=== PATIENT | female | born 1980 | race Two or more races ===

== ENCOUNTER 2016-04-08 16:25 | Emergency (ER) | payer OTHER ==
[~2016-04-08] VITALS: Ht 160 cm; Wt 93.1 kg
[~2016-04-08 16:25] MED LIST: ACET-704 PO; CITA20TA9 PO; IBUP-1060 PO; LABE100T28 PO; LABE100T3 PO; LABE200T2 PO; PREN-2 PO
[2016-04-08 18:15] VITALS: BP 121/67
--- NOTE | 2016-04-08 18:35 | PHYS DOC ---
Past Medical History Past Medical History: Depression, Hypertension (During ) Past Surgical History: No Surgical History Alcohol Use: None Drug Use: None Adult General Chief Complaint Chief Complaint: COUGH HPI HPI Patient is a 35 year old female approximately 37 weeks who presents with 5 days of dry cough, rhinorrhea, and now developing bilateral lower anterior chest wall and upper abdominal pain when she coughs. Pain is achy, intermittent. She is taking Tylenol Cold and Flu for her symptoms as directed by her doctor, but this is not controlling her cough. She took this approx 2 hours ago. She denies fever or chills, myalgia, sore throat, nausea or vomiting , diarrhea, dysuria. States she feels normal movement. Denies vaginal bleeding, loss of fluids, or abdominal cramping. Review of Systems Review of Systems Constitutional: Denies fever or chills [] Eyes: Denies change in visual acuity, redness, or eye pain [] HENT: Denies nasal congestion or sore throat [] Respiratory: Denies shortness of breath [] Cardiovascular: No additional information not addressed in HPI [] GI: Denies abdominal pain, nausea, vomiting, bloody stools or diarrhea [] : Denies dysuria or hematuria [] Musculoskeletal: Denies back pain or joint pain [] Integument: Denies rash or skin lesions [] Neurologic: Denies headache, focal weakness or sensory changes [] Endocrine: Denies polyuria or polydipsia [] Allergies Allergies Allergies Coded Allergies Type Severity Reaction Last Updated Verified No Known Drug Allergies 10/05/15 No Physical Exam Physical Exam Constitutional: Well developed, well nourished, no acute distress, non-toxic appearance. [] HENT: Normocephalic, atraumatic, bilateral external ears normal, oropharynx moist, no oral exudates, nose normal. [] Eyes: PERRLA, EOMI. [] Neck: Normal range of motion, supple. [] Cardiovascular:Heart rate regular rhythm [] Lungs & Thorax: Bilateral breath sounds clear to auscultation. No chest wall tenderness [] Abdomen: Bowel sounds normal, soft, no tenderness. Gravid. [] Skin: Warm, dry, no erythema, no rash. [] Back: No tenderness, no CVA tenderness. [] Extremities: No tenderness, ROM intact, no edema. [] Neurologic: Alert and oriented X 3, normal motor function, normal sensory function, no focal deficits noted. [] Psychologic: Affect normal, judgement normal, mood normal. [] Current Patient Data Vital Signs Vital Signs Date Time Temp Pulse Resp B/P Pulse Ox O2 Delivery O2 Flow Rate FiO2 04/08/16 18:15 97.7 71 18 121/67 97 Room Air 97.7 Course & Med Decision Making Course & Med Decision Making Pertinent Labs and Imaging studies reviewed. (See chart for details) She appears well on exam. Discussed avenues of symptomatic care for likely viral URI. Return precautions given. She understands and agrees with plan. Dragon Disclaimer Dragon Disclaimer This electronic medical record was generated, in whole or in part, using a voice recognition dictation system. Departure Departure Impression: Primary Impression: Upper respiratory infection Disposition: HOME, SELF-CARE Condition: STABLE Referrals: RENATO HANDY MD (PCP) Patient Instructions: Upper Respiratory Infection, Adult, [id number] Additional Instructions: Take Tylenol (acetaminophen) as needed for pain. Use honey as needed for cough. Follow-up with your primary care doctor within one week. Return for any concerns. Problem Qualifiers Primary Impression: Upper respiratory infection URI type: unspecified viral URI Qualified Code: J06.9 - Acute upper respiratory infection, unspecified Deedee DAWN MD Apr 08, 2016 18:35
== END 2016-04-08 18:53 | disposition home or self-care (01) ==
LOC: ER 16:25
DX: J06.9 Acute upper respiratory infection, unspecified (principal); F32.9 Major depressive disorder, single episode, unspecified
CPT/HCPCS: 99282

== ENCOUNTER 2016-04-16 13:28 | Observation (INO) | payer OTHER ==
[2016-04-16 14:19] LABS: NEG OBC AMNIO NEG; POS OBC AMNIO POS
[2016-04-16] MEDS ORDERED: HYDROXYZINE PAMOATE 25 MG CAPSULE PO PRN (15:45)
[2016-04-16] MEDS ORDERED: ACETAMINOPHEN 325 MG TABLET. PO PRN (15:45)
== END 2016-04-16 20:43 | disposition home or self-care (01) ==
LOC: 3 SO LND 13:28
PROVIDERS: ADMIT Family Medicine; ATTEND Family Medicine
DX: O62.9 Abnormality of forces of labor, unspecified (principal); O42.92 Full-term premature rupture of membranes, unspecified as to length of time between rupture and onset of labor; Z3A.38 38 weeks gestation of pregnancy
CPT/HCPCS: 36415; 84112; G0378; G0379

== ENCOUNTER 2016-04-20 21:24 | Observation (INO) | payer OTHER ==
[2016-04-20] MEDS ORDERED: IV RINGERS,LACTATED 1000ML 1,000 ML IV SCH (21:45)
[2016-04-20 21:55] LABS: BILIRUBIN,URINE NEGATIVE (NEG); GLUCOSE,URINE NEGATIVE (NEG); NITRITE,URINE POSITIVE (NEG); PROTEIN,URINE NEGATIVE (NEG-TRACE); UROBILINOGEN,URINE 0.2 mg/dL (0.2 mg/dL)
[2016-04-20 22:01] LABS: BARBITURATES NEG (NEG); BENZODIAZEPINES NEG (NEG); CANNABINOIDS NEG (NEG); COCAINE NEG (NEG); ETHANOL, URINE NEG (NEG); METHADONE NEG (NEG); OPIATES NEG (NEG); PHENCYCLIDINE NEG (NEG)
[2016-04-20 22:06] LABS: BACTERIA,URINE MANY /HPF (0-FEW); RBC,URINE RARE /HPF (0-2); SQUAMOUS EPITHELIAL CELL,UR MANY /LPF
== END 2016-04-20 22:50 | disposition home or self-care (01) ==
LOC: 3 SO LND 21:24
PROVIDERS: ADMIT Family Medicine; ATTEND Family Medicine
DX: O21.2 Late vomiting of pregnancy (principal); O26.893 Other specified pregnancy related conditions, third trimester; R11.0 Nausea; R19.7 Diarrhea, unspecified; Z3A.39 39 weeks gestation of pregnancy
CPT/HCPCS: 81001; 87086; G0378; G0379; G0481

== ENCOUNTER 2016-04-23 04:44 | Inpatient (IN) | payer OTHER ==
[~2016-04-23] VITALS: Ht 160 cm; Wt 97.1 kg
[2016-04-23] MEDS ORDERED: BUTORPHANOL 2 MG VIAL. IV PRN (05:00)
[2016-04-23] MEDS ORDERED: IBUPROFEN 600 MG TABLET. PO PRN (05:00)
[2016-04-23] MEDS ORDERED: ONDANSETRON PF 4 MG/2 ML VIAL. IV PRN (05:00)
[2016-04-23] MEDS ORDERED: LIDOCAINE 1% PF 30 ML VIAL. INJ PRN (05:00)
[2016-04-23] MEDS ORDERED: FENTANYL PF 100 MCG/2 ML VIAL. IV PRN (05:00)
[2016-04-23] MEDS ORDERED: OXYTOCIN 30 UNIT/500 ML PREMIX 500 ML IV PRN ×3 (05:00→12:30)
[2016-04-23] MEDS ORDERED: 0.9 % SODIUM CHLORIDE 10 ML DISP.SYRIN. IV PRN ×2 (05:00→12:30)
[2016-04-23] MEDS ORDERED: TERBUTALINE 1 MG/ML VIAL. SQ PRN (05:00)
[2016-04-23] MEDS ORDERED: ACETAMINOPHEN 325 MG TABLET. PO PRN ×2 (05:00→12:30)
[2016-04-23] MEDS: IV RINGERS,LACTATED 1000ML 1,000 ML IV SCH ×2 (05:25→09:16)
[2016-04-23 05:38] LABS: HEMATOCRIT 33.4 % (36.0-47.0); RED BLOOD COUNT 3.99 x10^6/uL (3.50-5.40); RED CELL DISTRIBUTION WIDTH 16.3 % (11.5-14.5)
[2016-04-23 05:53] LABS: CALCIUM 8.8 mg/dL (8.5-10.1); CREATININE 0.6 mg/dL (0.6-1.0); GFR 115.1; POTASSIUM 4.2 mmol/L (3.5-5.1)
[2016-04-23 05:59] LABS: ALBUMIN 2.5 g/dL (3.4-5.0); ALBUMIN/GLOBULIN RATIO 0.7 (1.0-1.7); TOTAL BILIRUBIN 0.3 mg/dL (0.2-1.0); TOTAL PROTEIN 6.2 g/dL (6.4-8.2)
[2016-04-23] MEDS ORDERED: AMPICILLIN 2 GM in IV NORMAL SALINE 100ML 100 ML IV ONE (06:00)
[2016-04-23] MEDS ORDERED: ROPIVacaine 0.2% IN 0.9%NACL PF 40 MG/20 ML DISP.SYRIN. EPI PRN (09:45)
[2016-04-23] MEDS ORDERED: NALOXONE 0.4 MG/ML VIAL. IV PRN (09:45)
[2016-04-23] MEDS ORDERED: FENTANYL PF 100 MCG/2 ML VIAL. EPI PRN (09:45)
[2016-04-23] MEDS ORDERED: BUPIVACAINE MPF 0.25% 10 ML VIAL. EPI PRN (09:45)
[2016-04-23] MEDS ORDERED: L&D EPIDURAL CASSETTE 100 ML EP PRN (09:45)
[2016-04-23] MEDS ORDERED: L&D EPIDURAL CASSETTE 100 ML PUMP.RESVR. EP ONE (10:00)
[2016-04-23] MEDS ORDERED: ROPIVacaine 0.2% IN 0.9%NACL PF 40 MG/20 ML DISP.SYRIN. ONE (10:00)
[2016-04-23] MEDS ORDERED: IV RINGERS,LACTATED 1000ML 1,000 ML IV SCH (10:00)
[2016-04-23] MEDS ORDERED: AMPICILLIN 1 GM in IV NORMAL SALINE 50ML 50 ML IV SCH (10:00)
[2016-04-23] MEDS ORDERED: INFLUENZA VAX SCREEN BY RX. MC PRN (12:00)
[2016-04-23] MEDS ORDERED: MAGNESIUM HYDROXIDE 2,400 MG/30 ML ORAL.SUSP. PO PRN (12:30)
[2016-04-23] MEDS ORDERED: MMR per PROTOCOL. MC PRN (12:30)
[2016-04-23] MEDS ORDERED: PHENYLEPH/MINERAL OIL/PETROLAT RECTAL OINTMENT 28GM TUBE. RC PRN (12:30)
[2016-04-23] MEDS ORDERED: HYDROCODONE/APAP 5/325MG TABLET. PO PRN (12:30)
[2016-04-23] MEDS ORDERED: ZOLPIDEM 5 MG TABLET. PO PRN (12:30)
[2016-04-23] MEDS ORDERED: DIPHENHYDRAMINE HCL 25 MG CAPSULE PO PRN (12:30)
[2016-04-23] MEDS ORDERED: BENZOCAINE 20% TOPICAL AEROSOL SPRAY 57GM CAN. TP PRN (12:30)
[2016-04-23] MEDS ORDERED: HYDROCORTISONE 1% TOPICAL OINTMENT 30GM TUBE. TP PRN (12:30)
[2016-04-23] MEDS ORDERED: MAG HYDROX/ALUMINUM HYD/SIMETH 30 ML ORAL.SUSP PO PRN (12:30)
[2016-04-23] MEDS ORDERED: SIMETHICONE 80 MG TAB.CHEW PO PRN (12:30)
--- NOTE | 2016-04-23 12:31 | PDOC1 ---
OB - History Hx of Present Care: Good Care Ultrasounds: Normal mid trimester US Obstetrical Complications: Other (HTN, GBS) Medical Complications: None Past Family/Social History * Past Medical, Surgical, Family and Obstetric Histories reviewed from chart. Blood Type: O+ Rubella: Not Immune RPR/VDRL: Negative GBS Status: Positive HBsAG: Negative OB - Chief Complaint & HPI Date of Admission: Date of Admission: Apr 23, 2016 at 04:44 Chief Complaint/History : 8 Para: 4 EDC: Apr 26, 2016 Reason for admission: induction of labor Indication for induction: other (HTN) Admission Nurse Assessment Rev: Yes Problems: OB - Admission Exam Physical Exam HEENT: Normal, Nasal Mucosa Normal, Oropharynx Normal, Moist Membranes, Fontanelles Normal Lungs: Clear, Equal Abdomen: Gravid Extremities: Normal Pulses, No tenderness or swelling Reflexes: Normal Cervical Dilatation: 3cm Effacement: 75% Station: -2 Membranes: Intact Amniotic Fluid: Clear Heart Rate: Normal Accelerations: Accelerations Present Decelerations: No decelerations Short Term Variability: Present Intermediate Variability: Moderate Contractions on Admission: 6-10 Minutes Apart Intensity: Moderate RENATO HANDY MD Apr 23, 2016 12:31
[2016-04-23] MEDS ORDERED: FLU VACC QUAD 2016-17 (36MOS+)/PF 0.5 ML SYRINGE. VAX IM ONE (13:00)
[2016-04-23] MEDS: IBUPROFEN 800 MG TABLET. PO SCH ×2 (14:35→21:54)
[2016-04-23 15:00] VITALS: BP 111/66
[2016-04-23 15:30] VITALS: BP 108/60
[2016-04-23 17:05] VITALS: BP 113/73
[2016-04-23 21:15] VITALS: BP 109/62
--- NOTE | 2016-04-23 23:09 | OP ---
DATE OF SURGERY: 04/23/2016 CLINICAL COURSE: This patient is a 35-year-old, G8, P4, AB 2, female admitted at 39+ weeks for term induction with appropriate cervix due to chronic hypertension. The patient has risk of 1 previous premature delivery, GBS positive status and rubella nonimmune status. The patient was admitted and Pitocin was begun with artificial rupture of membranes done and clear fluid noted. The patient obtained epidural anesthesia and progressed through labor without consequence obtaining a complete dilatation and delivering a viable female infant at 12:06 p.m. with Apgars of 9, 9 and 9, after 2 doses of antibiotics due to GBS positive status. The head was delivered and suctioned and the body was delivered and suctioned again and the cord was clamped and transected. was handed off. Subsequently, the placenta was delivered intact with 3-vessel cord noted. Uterus was firm with Pitocin and palpation. There was approximately 250 mL blood loss. A first-degree midline perineal laceration was noted and was sutured with 3-0 chromic. There was good hemostasis. Mother and baby were to recovery in stable condition. RENATO HANDY MD DR: JONATAN/leni JOB#: [id number] / [id number]
[2016-04-23] MEDS: HYDROCODONE/APAP 5/325MG TABLET. PO PRN (23:26)
[2016-04-24 01:28] VITALS: BP 125/70
[2016-04-24 04:45] LABS: BASO % 0 % (0-3); EOS % 1 % (0-3); HEMOGLOBIN 10.4 g/dL (12.0-15.5); LYMPH # 3.2 x10^3/uL (1.0-4.8); LYMPH % 36 % (24-48); MEAN CORPUSCULAR HEMOGLOBIN 27 pg (25-35); MEAN CORPUSCULAR HGB CONC 32 g/dL (31-37); MEAN CORPUSCULAR VOLUME 84 fL (79-100); MONO % 5 % (0-9); NEUT % 58 % (31-73); PLATELET COUNT 168 x10^3/uL (140-400); RED CELL DISTRIBUTION WIDTH 16.6 % (11.5-14.5); WHITE BLOOD COUNT 8.9 x10^3/uL (4.0-11.0)
[2016-04-24] MEDS: HYDROCODONE/APAP 5/325MG TABLET. PO PRN (04:54)
[2016-04-24 05:00] VITALS: BP 107/65
[2016-04-24] MEDS ORDERED: FERROUS SULFATE 325 MG TABLET PO SCH (08:00)
[2016-04-24] MEDS: IBUPROFEN 800 MG TABLET. PO SCH (08:47)
[2016-04-24] MEDS ORDERED: MEASLES, MUMPS & RUBELLA VACC 0.5 ML VIAL. VAX SQ ONE (10:00)
--- NOTE | 2016-04-24 10:08 | PDOC ---
PROGRESS NOTES Subjective Subjective Patient doing well PPD # 1 Objective Objective Vital Signs Date Time Temp Pulse Resp B/P Pulse Ox O2 Delivery O2 Flow Rate FiO2 04/24/16 05:00 98.6 70 18 107/65 Room Air 98.6 04/23/16 15:30 96 Physical Exam Abdomen: Normal bowel sounds Heart: Regular rate Extremities: No edema, Other (neg sonja's) General: Alert Lungs: Clear to auscultation Assessment Assessment PPD #1 Plan Plan of Care Routine care Comment Review of Relevant I have reviewed the following items brandt (where applicable) has been applied. Labs Laboratory Tests Test 04/23/16 05:20 04/24/16 03:50 White Blood Count 6.0x10^3/uL (4.0-11.0) 8.9x10^3/uL (4.0-11.0) Red Blood Count 3.99x10^6/uL (3.50-5.40) 3.80x10^6/uL (3.50-5.40) Hemoglobin 11.0g/dL (12.0-15.5) 10.4g/dL (12.0-15.5) Hematocrit 33.4% (36.0-47.0) 32.0% (36.0-47.0) Mean Corpuscular Volume 84fL (79-100) 84fL (79-100) Mean Corpuscular Hemoglobin 28pg (25-35) 27pg (25-35) Mean Corpuscular Hemoglobin Concent 33g/dL (31-37) 32g/dL (31-37) Red Cell Distribution Width 16.3% (11.5-14.5) 16.6% (11.5-14.5) Platelet Count 194x10^3/uL (140-400) 168x10^3/uL (140-400) Sodium Level 139mmol/L (136-145) Potassium Level 4.2mmol/L (3.5-5.1) Chloride Level 105mmol/L (98-107) Carbon Dioxide Level 21mmol/L (21-32) Anion Gap 13 (6-14) Blood Urea Nitrogen 10mg/dL (7-20) Creatinine 0.6mg/dL (0.6-1.0) Estimated GFR (Cockcroft-Gault) 115.1 BUN/Creatinine Ratio 17 (6-20) Glucose Level 104mg/dL (70-99) Calcium Level 8.8mg/dL (8.5-10.1) Total Bilirubin 0.3mg/dL (0.2-1.0) Aspartate Amino Transf (AST/SGOT) 22U/L (15-37) Alanine Aminotransferase (ALT/SGPT) 17U/L (14-59) Alkaline Phosphatase 162U/L (46-116) Total Protein 6.2g/dL (6.4-8.2) Albumin 2.5g/dL (3.4-5.0) Albumin/Globulin Ratio 0.7 (1.0-1.7) Neutrophils (%) (Auto) 58% (31-73) Lymphocytes (%) (Auto) 36% (24-48) Monocytes (%) (Auto) 5% (0-9) Eosinophils (%) (Auto) 1% (0-3) Basophils (%) (Auto) 0% (0-3) Neutrophils # (Auto) 5.2x10^3uL (1.8-7.7) Lymphocytes # (Auto) 3.2x10^3/uL (1.0-4.8) Monocytes # (Auto) 0.4x10^3/uL (0.0-1.1) Eosinophils # (Auto) 0.1x10^3/uL (0.0-0.7) Basophils # (Auto) 0.0x10^3/uL (0.0-0.2) Laboratory Tests Test 04/24/16 03:50 White Blood Count 8.9x10^3/uL (4.0-11.0) Red Blood Count 3.80x10^6/uL (3.50-5.40) Hemoglobin 10.4g/dL (12.0-15.5) Hematocrit 32.0% (36.0-47.0) Mean Corpuscular Volume 84fL (79-100) Mean Corpuscular Hemoglobin 27pg (25-35) Mean Corpuscular Hemoglobin Concent 32g/dL (31-37) Red Cell Distribution Width 16.6% (11.5-14.5) Platelet Count 168x10^3/uL (140-400) Neutrophils (%) (Auto) 58% (31-73) Lymphocytes (%) (Auto) 36% (24-48) Monocytes (%) (Auto) 5% (0-9) Eosinophils (%) (Auto) 1% (0-3) Basophils (%) (Auto) 0% (0-3) Neutrophils # (Auto) 5.2x10^3uL (1.8-7.7) Lymphocytes # (Auto) 3.2x10^3/uL (1.0-4.8) Monocytes # (Auto) 0.4x10^3/uL (0.0-1.1) Eosinophils # (Auto) 0.1x10^3/uL (0.0-0.7) Basophils # (Auto) 0.0x10^3/uL (0.0-0.2) Medications Current Medications Sodium Chloride 3 ml 3 ml QSHIFT PRN IV AFTER MEDS AND BLOOD DRAWS; Start at 05:00; Stop 04/23/16 at 19:46; Status DC Lactated Ringer's (Iv Lactated Ringers) 1,000 ml @ 125 mls/hr Q8H IV Last administered on 04/23/16t 09:16; Start 04/23/16 at 04:58; Stop 04/23/16 at 19:46; Status DC Butorphanol Tartrate (Stadol) 2 mg PRN Q1HR PRN IV Severe labor pain; Start 04/23/16 at 05:00; Stop 04/23/16 at 19:46; Status DC Fentanyl Citrate (Fentanyl 2ml Vial) 100 mcg PRN Q30MIN PRN IV Severe pain; Start 04/23/16 at 05:00; Stop 04/23/16 at 19:46; Status DC Acetaminophen (Tylenol) 650 mg PRN Q6HRS PRN PO MILD PAIN / TEMP; Start at 05:00; Stop 04/23/16 at 12:30; Status DC Ondansetron HCl (Zofran) 4 mg PRN Q4HRS PRN IV NAUSEA/VOMITING; Start 04/23/16 at 05:00 Terbutaline Sulfate (Brethine) 0.25 mg 1X PRN PRN SQ SEE COMMENTS; Start at 05:00; Stop 04/23/16 at 19:46; Status DC Lidocaine HCl 30 ml 30 ml 1X PRN PRN INJ SEE COMMENTS; Start 04/23/16 at 05:00; Stop 04/23/16 at 19:46; Status DC Ampicillin Sodium 2 gm/Sodium Chloride 100 ml @ 200 mls/hr 1X ONCE IV Last administered on 04/23/16 07:47; Start 04/23/16 at 06:00; Stop 04/23/16 at 19:47; Status DC Ampicillin Sodium 1 gm/Sodium Chloride 50 ml @ 100 mls/hr Q4H IV Last administered on 04/23/16 11:53; Start 04/23/16 at 10:00; Stop 04/23/16 at 19:47; Status DC Oxytocin/Sodium Chloride 500 ml @ 0 mls/hr CONT PRN IV SEE I/O RECORD Last administered on 04/23/16 07:49; Start 04/23/16 at 05:00; Stop 04/23/16 at 19:47; Status DC Oxytocin/Sodium Chloride (Oxytocin Premix Infusion) 500 ml @ 0 mls/hr CONT PRN PRN IV Post delivery bleeding; Start 04/23/16 at 05:00 Ibuprofen 600 mg 600 mg PRN Q6HRS PRN PO MODERATE PAIN; Start 04/23/16 at 05:00 ; Stop 04/23/16 at 19:47; Status DC Lactated Ringer's (Iv Lactated Ringers) 1,000 ml @ 1,000 mls/hr Q1H IV ; Start 04/23/16 at 10:00; Stop 04/23/16 at 10:59; Status DC Naloxone HCl (Narcan) 0.04 mg PRN Q1MIN PRN IV SEE COMMENTS; Start 04/23/16 at 09:45; Stop 04/23/16 at 19:47; Status DC Fentanyl Citrate (Fentanyl 2ml Vial) 100 mcg PRN 1X PRN EPI FOR ANESTHESIA; Start 04/23/16 at 09:45; Stop 04/23/16 at 19:47; Status DC Bupivacaine HCl 10 ml 10 ml PRN 1X PRN EPI FOR ANESTHESIA; Start 04/23/16 at 09: 45; Stop 04/23/16 at 19:47; Status DC Ropivacaine/ Fentanyl/NS (Inenczwl-Hazao-MG 3 Mcg-0.1%) 100 ml @ 12 mls/hr CONT PRN EP PAIN; Start 04/23/16 at 09:45; Stop 04/23/16 at 19:47; Status DC Ropivacaine 40 mg PRN 1X PRN EPI SEE COMMENTS; Start 04/23/16 at 09:45; Stop 04/23/16 at 19:47; Status DC Info (Do NOT chart on this placeholder) 1 each PRN 1X PRN MC SEE COMMENTS; Start 04/23/16 at 12:00; Status UNV Influenza Virus Vaccine Quadrival (Fluarix Quad [id number] Syringe) 0.5 ml ONCE ONCE VAX IM ; Start 04/23/16 at 13:00; Stop 04/23/16 at 13:01; Status DC Sodium Chloride 10 ml 10 ml QSHIFT PRN IV AFTER MEDS AND BLOOD DRAWS; Start 04/23/16 at 12:30 Oxytocin/Sodium Chloride (Oxytocin Premix Infusion) 500 ml @ 62.5 mls/hr CONT PRN IV SEE I/O RECORD; Start 04/23/16 at 12:30; Stop 04/23/16 at 19:47; Status DC Acetaminophen (Tylenol) 650 mg PRN Q6HRS PRN PO MILD PAIN / TEMP; Start at 12:30 Ibuprofen (Motrin) 800 mg Q8HRS PO Last administered on 04/24/16 08:47; Start 04/23/16 at 14:00 Magnesium Hydroxide (Milk Of Magnesia) 2,400 mg PRN DAILY PRN PO CONSTIPATION; Start 04/23/16 at 12:30 Al Hydrox/Mg Hydrox/Simethicone (Mylanta Plus Xs) 30 ml PRN Q4HRS PRN PO HEARTBURN / GAS; Start 04/23/16 at 12:30 Simethicone (Gas-X) 80 mg PRN AFTMEALHC PRN PO GAS / BLOATING; Start 04/23/16 at 12:30 Diphenhydramine HCl (Benadryl) 25 mg PRN Q6HRS PRN PO ITCHING; Start 04/23/16 at 12:30 Benzocaine (Americaine) 1 spray PRN QID PRN TP TOPICAL PAIN Last administered on 04/23/16 14:34; Start 04/23/16 at 12:30 Phenyleph/Shark Oil/Min Oil/Petrol (Preparation H) 1 yaritza PRN QID PRN RC RECTAL PAIN; Start 04/23/16 at 12:30 Hydrocortisone (Cortaid) 1 yaritza PRN QID PRN TP PERINEAL PAIN; Start 04/23/16 at 12:30 Ferrous Sulfate (Feosol) 325 mg BIDWMEALS PO ; Start 04/24/16 at 08:00; Stop 04/24 at 08:00; Status DC Zolpidem Tartrate (Ambien) 5 mg PRN QHS PRN PO INSOMNIA, MAY REPEAT X1; Start 04/23/16 at 12:30 Info (Do NOT chart on this placeholder) 1 ea 1X PRN PRN MC SEE COMMENTS; Start 04/23/16 at 12:30 Info (Do NOT chart on this placeholder) 1 ea 1X PRN PRN MC SEE COMMENTS; Start 04/23/16 at 12:30 Acetaminophen/ Hydrocodone Bitart (Lortab 5/325) 1 tab PRN Q4HRS PRN PO MILD PAIN; Start 04/23/16 at 12:30 Acetaminophen/ Hydrocodone Bitart (Lortab 5/325) 2 tab PRN Q4HRS PRN PO MODERATE PAIN, SEVERE PAIN Last administered on 04/24/16t 04:54; Start 04/23/16 at 12:30 Measles/Mumps/ Rubella Vaccine Live (M-M-R Ii Vaccine With Diluent) 0.5 ml ONCE ONCE VAX SQ ; Start 04/24/16 at 10:00; Stop 04/24/16 at 10:01; Status DC Active Scripts Active Trandate (Labetalol Hcl) 100 Mg Tablet 50 Mg PO BID Tylenol With Codeine #3 Tablet (Acetaminophen/Codeine Phosphate) 1 Each Tablet 1 Each PO Q4H PRN Ibuprofen 800 Mg Tablet 800 Mg PO Q6H PRN Reported Prenatabs Rx Tablet ( Vit #76/Iron,Carb/Fa) 1 Each Tablet 1 Each PO Labetalol Hcl 200 Mg Tablet 200 Mg PO Celexa (Citalopram Hydrobromide) 20 Mg Tablet 20 Mg PO DAILY Vitals/I & O Vital Sign - Last 24 Hours 04/23/16 04/23/16 04/23/16 04/23/16 15:00 15:30 17:05 21:15 Temp 97.9 97.9 98.1 97.7 97.9 97.9 98.1 97.7 Pulse 74 84 88 77 Resp 20 20 18 18 B/P 111/66 108/60 113/73 109/62 Pulse Ox 98 96 O2 Delivery Room Air Room Air 04/23/16 04/24/16 04/24/16 04/24/16 23:26 00:30 01:28 04:54 Temp 98.4 98.4 Pulse 68 Resp 18 18 18 18 B/P 125/70 O2 Delivery Room Air Room Air Room Air Room Air 04/24/16 05:00 Temp 98.6 98.6 Pulse 70 Resp 18 B/P 107/65 O2 Delivery Room Air RENATO HANDY MD Apr 24, 2016 10:08
[2016-04-24 11:15] VITALS: BP 109/71
[2016-04-24 15:15] VITALS: BP 104/70
[2016-04-24 22:00] VITALS: BP 117/67
[2016-04-25 05:30] VITALS: BP 98/63
[2016-04-25] MEDS: IBUPROFEN 800 MG TABLET. PO SCH (05:34)
--- NOTE | 2016-04-25 09:27 | PDOC3 ---
OB DISCHARGE SUMMARY DATE OF ADMISSION: 04/23/16 DATE OF DISCHARGE: 04/25/16 REASON FOR ADMISSION: Induction of labor PROCEDURES: Rubella IG PROBLEM LIST AT DISCHARGE Problems Medical Problems: (1) Term delivered Status: Acute HTN BP stable without meds at present DISCHARGE DIAGNOSIS: Term Delivered DISCHARGE INFORMATION: Activity (no sexual activity for 6 weeks), Others (f/u two weeks for HTN eval and 6 weeks for post delivery eval and control) HOSPITAL COURSE routine CONDITION AT DISCHARGE Stable RENATO HANDY MD Apr 25, 2016 09:27
[2016-04-25 09:50] VITALS: BP 114/69
== END 2016-04-25 11:20 | disposition home or self-care (01) | DRG 775 ==
LOC: 3 SO LND 04:44 → 3 NORTH 15:27
PROVIDERS: ADMIT Family Medicine; ATTEND Family Medicine
PROC: 10E0XZZ Delivery of Products of Conception, External Approach (ICD-10-PCS; principal; 2016-04-23)
PROC: 0HQ9XZZ Repair Perineum Skin, External Approach (ICD-10-PCS; 2016-04-23)
PROC: 3E0S3CZ (ICD-10-PCS; 2016-04-23)
PROC: 00HU33Z Insertion of Infusion Device into Spinal Canal, Percutaneous Approach (ICD-10-PCS; 2016-04-23)
DX: O99.824 Streptococcus B carrier state complicating childbirth (principal); O16.4 Unspecified maternal hypertension, complicating childbirth; O70.0 First degree perineal laceration during delivery; Z3A.39 39 weeks gestation of pregnancy; Z37.0 Single live birth
CPT/HCPCS: 36415; 80053; 85027; 86593; 86850; 86900; 86901; 90686; 90707; J0290; J2590; J2795; J7120

== ENCOUNTER 2016-11-10 14:59 | Emergency (ER) | payer OTHER ==
[~2016-11-10] VITALS: Ht 160 cm; Wt 86.2 kg
--- NOTE | 2016-11-10 15:14 | PHYS DOC ---
Past Medical History Past Medical History: Depression, Hypertension Past Surgical History: No Surgical History Alcohol Use: None Drug Use: None Adult General Chief Complaint Chief Complaint: FINGER INJURY [facility] HPI Patient is a 35 year old female presents to the emergency department with complaints of right fourth finger discomfort. She states that one week ago she was moving some things when she struck her finger on the edge of a door frame. Patient states it was "black and blue". She states that has resolved but the finger is still crooked. She denies loss range of motion. He has no other complaints. Review of Systems Review of Systems Constitutional: Denies fever or chills [] Eyes: Denies change in visual acuity, redness, or eye pain [] HENT: Denies nasal congestion or sore throat [] Respiratory: Denies cough or shortness of breath [] Cardiovascular: No additional information not addressed in HPI [] GI: Denies abdominal pain, nausea, vomiting, bloody stools or diarrhea [] : Denies dysuria or hematuria [] Musculoskeletal: Finger pain Integument: Denies rash or skin lesions [] Neurologic: Denies headache, focal weakness or sensory changes [] Endocrine: Denies polyuria or polydipsia [] Allergies Allergies Allergies Coded Allergies Type Severity Reaction Last Updated Verified No Known Drug Allergies 10/05/15 No Physical Exam Physical Exam Constitutional: Well developed, well nourished, no acute distress, non-toxic appearance. [] HENT: Normocephalic, atraumatic, bilateral external ears normal, oropharynx moist, no oral exudates, nose normal. [] Eyes: PERRLA, EOMI, conjunctiva normal, no discharge. [] Neck: Normal range of motion, no tenderness, supple, no stridor. [] Cardiovascular:Heart rate regular rhythm, no murmur [] Lungs & Thorax: Bilateral breath sounds clear to auscultation [] Abdomen: Bowel sounds normal, soft, no tenderness, no masses, no pulsatile masses. [] Skin: Warm, dry, no erythema, no rash. [] Back: No tenderness, no CVA tenderness. [] Extremities: Right fourth finger: Full range of motion without difficulty. Tendon function normal. She has mild tenderness to palpate at the DIP. There is no swelling. NVI distally Neurologic: Alert and oriented X 3, normal motor function, normal sensory function, no focal deficits noted. [] Psychologic: Affect normal, judgement normal, mood normal. [] Current Patient Data Vital Signs Vital Signs Date Time Temp Pulse Resp B/P (MAP) Pulse Ox O2 Delivery O2 Flow Rate FiO2 11/10/16 15:16 98.4 65 20 99 Room Air 98.4 EKG EKG [] Radiology/Procedures Radiology/Procedures Fracture right fourth finger middle phalanx.[] Splint placement: Aluminum splint applied to the fourth finger of the right hand by nursing staff. Patient tolerated well. Neurovascular intact distally. Course & Med Decision Making Course & Med Decision Making Pertinent Labs and Imaging studies reviewed. (See chart for details) []The fracture is 1 week old, patient will be placed in aluminum splint and referred to a hand specialist. She will be prescribed ibuprofen for discomfort. Dragon Disclaimer Dragon Disclaimer This electronic medical record was generated, in whole or in part, using a voice recognition dictation system. Departure Departure Impression: Primary Impression: Finger fracture, right Disposition: HOME, SELF-CARE Condition: STABLE Referrals: RENATO HANDY MD (PCP) Patient Instructions: Finger Fracture Additional Instructions: Please call Dr. Etienne for follow up appointment. [phone] Scripts Ibuprofen (IBUPROFEN) 800 Mg Tablet 800 MG PO PRN Q6HRS Y for PAIN, #20 TAB Prov: LAKSHMI MARTINES APRN 11/10/16 Problem Qualifiers Primary Impression: Finger fracture, right Encounter type: initial encounter Finger: ring finger Fracture type: closed Phalanx: middle Fracture alignment: displaced Qualified Codes: S62.624A - Displaced fracture of medial phalanx of right ring finger, initial encounter for closed fracture LAKSHMI MARTINES APRN Nov 10, 2016 15:14
[2016-11-10 15:16] VITALS: BP 123/71
[2016-11-10] MEDS ORDERED: IBUP-1060 PO (15:32)
--- NOTE | 2016-11-10 15:37 | RAD ---
Indication crush injury. An AP view of the right hand was obtained as well as individual oblique and lateral views targeted to the ring finger. There is an oblique, traumatic, essentially nondisplaced fracture through the middle phalanx of the ring finger. An additional acute or significant bony finding is not seen. IMPRESSION: Fractured middle phalanx of the ring finger
== END 2016-11-10 15:48 | disposition home or self-care (01) ==
LOC: ER 14:59
DX: S62.624A Displaced fracture of middle phalanx of right ring finger, initial encounter for closed fracture (principal); I10 Essential (primary) hypertension; F32.9 Major depressive disorder, single episode, unspecified; W22.8XXA Striking against or struck by other objects, initial encounter; Y93.89 Activity, other specified; Y92.89 Other specified places as the place of occurrence of the external cause; Y99.8 Other external cause status
CPT/HCPCS: 29130; 73140; 99284-25

== ENCOUNTER 2017-05-03 16:37 | Emergency (ER) | payer OTHER ==
[2017-05-03 17:23] LABS: ADD MAN DIFF? NO
[2017-05-03 17:27] LABS: BASO % 0 % (0-3); EOS # 0.1 x10^3/uL (0.0-0.7); EOS % 3 % (0-3); HEMATOCRIT 38.2 % (36.0-47.0); HEMOGLOBIN 13.1 g/dL (12.0-15.5); LYMPH # 2.3 x10^3/uL (1.0-4.8); LYMPH % 44 % (24-48); MEAN CORPUSCULAR HEMOGLOBIN 30 pg (25-35); MEAN CORPUSCULAR HGB CONC 34 g/dL (31-37); MEAN CORPUSCULAR VOLUME 87 fL (79-100); MONO # 0.3 x10^3/uL (0.0-1.1); MONO % 6 % (0-9); NEUT # 2.5 x10^3uL (1.8-7.7); NEUT % 47 % (31-73); PLATELET COUNT 253 x10^3/uL (140-400); RED CELL DISTRIBUTION WIDTH 13.9 % (11.5-14.5); WHITE BLOOD COUNT 5.3 x10^3/uL (4.0-11.0)
[2017-05-03] MEDS: ACETAMINOPHEN 500 MG TABLET PO (17:29)
[2017-05-03 17:33] LABS: URINE HCG POC HCG NEGATIVE (Negative)
[2017-05-03 17:36] LABS: PROTHROMBIN TIME PATIENT 12.9 SEC (11.7-14.0)
[2017-05-03 17:37] LABS: BILIRUBIN,URINE NEGATIVE (NEG); CLARITY,URINE CLEAR; COLOR,URINE AMBER; GLUCOSE,URINE NEGATIVE (NEG); NITRITE,URINE NEGATIVE (NEG); PARTIAL THROMBOPLASTIN TIME 28 SEC (24-38); PROTEIN,URINE 30 mg/dL (NEG-TRACE); UROBILINOGEN,URINE 0.2 mg/dL (0.2 mg/dL)
[2017-05-03 17:42] LABS: BACTERIA,URINE FEW /HPF (0-FEW); RBC,URINE >40 /HPF (0-2); SQUAMOUS EPITHELIAL CELL,UR MOD /LPF
[2017-05-03 17:47] LABS: ANION GAP 8 (6-14); BLOOD UREA NITROGEN 11 mg/dL (7-20); BUN/CREATININE RATIO 16 (6-20); CALCIUM 9.2 mg/dL (8.5-10.1); CARBON DIOXIDE 28 mmol/L (21-32); CHLORIDE 105 mmol/L (98-107); CREATININE 0.7 mg/dL (0.6-1.0); GFR 95.8; GLUCOSE 103 mg/dL (70-99); POTASSIUM 3.6 mmol/L (3.5-5.1); SODIUM 141 mmol/L (136-145)
[2017-05-03 17:59] LABS: ALBUMIN 3.5 g/dL (3.4-5.0); ALBUMIN/GLOBULIN RATIO 0.9 (1.0-1.7); ALK PHOS 95 U/L (46-116); ALT (SGPT) 25 U/L (14-59); AST (SGOT) 15 U/L (15-37); TOTAL BILIRUBIN 0.3 mg/dL (0.2-1.0); TOTAL PROTEIN 7.5 g/dL (6.4-8.2)
== END 2017-05-03 20:44 | disposition home or self-care (01) ==
LOC: ER 16:37
DX: N93.9 Abnormal uterine and vaginal bleeding, unspecified (principal); I10 Essential (primary) hypertension
CPT/HCPCS: 36415; 76830; 76856; 80053; 81001; 81025; 85025; 85610; 85730; 99285-25